=== PATIENT | female | born 1955 | race Two or more races ===

== ENCOUNTER 2021-04-19 11:28 | Inpatient (IN) ==
[2021-04-19 11:41] LABS: BORDETELLA PARAPERTUSSIS (PCR) NOT DETECTED (NOT DETECT); BORDETELLA PERTUSSIS (PCR) NOT DETECTED (NOT DETECT); CHLAMYDIA PNEUMONIAE (PCR) NOT DETECTED (NOT DETECT); CORONAVIRUS 229E (PCR) NOT DETECTED (NOT DETECT); CORONAVIRUS HKU1 (PCR) NOT DETECTED (NOT DETECT); CORONAVIRUS NL63 (PCR) NOT DETECTED (NOT DETECT); CORONAVIRUS OC43 (PCR) NOT DETECTED (NOT DETECT); HUMAN METAPNEUMOVIRUS (PCR) NOT DETECTED (NOT DETECT); HUMAN RHINOVIRUS/ENTEROV (PCR) NOT DETECTED (NOT DETECT); INFLUENZA B (PCR) NOT DETECTED (NOT DETECT); MYCOPLASMA PNEUMONIAE (PCR) NOT DETECTED (NOT DETECT); PARAINFLUENZA VIRUS 1 (PCR) NOT DETECTED (NOT DETECT); PARAINFLUENZA VIRUS 2 (PCR) NOT DETECTED (NOT DETECT); PARAINFLUENZA VIRUS 4 (PCR) NOT DETECTED (NOT DETECT); RESPIRATORY SYNCYTIAL V (PCR) NOT DETECTED (NOT DETECT); SARS_COV_2 (PCR) NOT DETECTED (NOT DETECT)
[2021-04-19 12:32] LABS: ADENOVIRUS (PCR) NOT DETECTED (NOT DETECT); PARAINFLUENZA VIRUS 3 (PCR) DETECTED (NOT DETECT)
[2021-04-19 13:24] VITALS: BMI 33.4
[2021-04-19] MEDS ORDERED: ATROPINE SULFATE PFS IVP PRN (13:53)
[2021-04-19] MEDS ORDERED: NITROSTAT SL PRN (13:53)
[2021-04-19] MEDS ORDERED: TYLENOL PO PRN (13:53)
[2021-04-19] MEDS ORDERED: LISINOPRIL HYDROCHLOROTHIAZIDE PO SCH (14:00)
[2021-04-19] MEDS ORDERED: LEVOTHYROXINE 100 MCG PO SCH (14:00)
[2021-04-19 14:12] LABS: BASOPHILS % (AUTO) 0.5 % (0.0-3.0); EOSINOPHILS # (AUTO) 0.1 K/ul (0.0-0.7); EOSINOPHILS % (AUTO) 1.6 % (0.0-7.0); HEMATOCRIT 41.3 % (37.0-47.0); HEMOGLOBIN 13.9 g/dl (12.0-16.0); IMMATURE GRANULOCYTE % (AUTO) 0.3 % (0.0-5.0); LYMPHOCYTES # (AUTO) 1.4 K/uL (0.60-3.4); LYMPHOCYTES % (AUTO) 35.5 (10.0-50.0); MEAN CORPUSCULAR HEMOGLOBIN 27.6 pg (27.0-31.0); MEAN CORPUSCULAR HGB CONC 33.7 (31.8-35.4); MEAN CORPUSCULAR VOLUME 81.9 fl (81.0-99.0); MONOCYTES # (AUTO) 0.5 K/uL (0.4-2.0); MONOCYTES % (AUTO) 13.2 (0-10); NEUTROPHILS # (AUTO) 1.9 K/ul (2.0-6.9); NEUTROPHILS % (AUTO) 48.9 % (42.2-75.2); PLATELET COUNT 189 10^3/uL (140-440); RDW COEFFICIENT OF VARIATION 14.1 % (11.6-14.8); RED BLOOD COUNT 5.04 10^6/ul (4.20-5.40); WHITE BLOOD COUNT 3.86 K/ul (4.6-10.2)
[2021-04-19 14:25] LABS: ALANINE AMINOTRANSFERASE 23.1 U/L (0-35); ALKALINE PHOSPHATASE 102.3 U/L (53-141); ASPARTATE AMINO TRANSFERASE 28.5 U/L (14-36); BILIRUBIN,TOTAL 0.71 mg/dL (0.2-1.3); BLOOD UREA NITROGEN 13.1 mg/dL (7-17); CALCIUM 10.15 mg/dL (8.4-10.2); CARBON DIOXIDE 27.5 mmol/L (22-30.0); CHLORIDE 103.1 mmol/L (98-107); CREATINE KINASE 158.1 U/L (30-135); CREATININE 0.88 mg/dL (0.60-1.30); POTASSIUM 4.08 mmol/L (3.5-5.1); SODIUM 137.5 mmol/L (134.5-145); TOTAL PROTEIN 7.22 g/dL (6.3-8.2)
[2021-04-19] MEDS: ZITHROMAX PO SCH (14:34)
[2021-04-19] MEDS: ELIQUIS PO SCH ×2 (14:34→20:48)
[2021-04-19] MEDS: PHENERGAN WITH CODEINE 6.25/10 MG/5 ML PO PRN ×2 (14:34→20:48)
[2021-04-19] MEDS: DECADRON IM SCH (14:34)
[2021-04-19] MEDS: ROCEPHIN 1 GM/50 ML D5W 1 GM/50 ML BAG IV SCH (14:34)
[2021-04-19] MEDS: DEXTROSE 5%-1/2NS IV SOLUTION 1,000 ML IV SCH (14:35)
[2021-04-19 14:38] LABS: TROPONIN I < 0.012 ng/ml (0.0000-0.120)
[2021-04-19] MEDS: CARDIZEM CD PO SCH (15:21)
--- NOTE | 2021-04-19 16:17 | DI ---
EXAM: Chest two view, frontal and lateral views. HISTORY: Shortness of breath. COMPARISON: 04/17/2021, 02/15/2021. FINDINGS: The heart size is normal. There is no pulmonary vascular congestion. The lungs are clear . No pleural effusion or pneumothorax is seen. No acute osseous abnormality identified. Since the prior study, there has been no significant interval change. IMPRESSION: No acute cardiopulmonary process.
[2021-04-19 16:55] LABS: BILIRUBIN,URINE Negative (NEGATIVE); CLARITY,URINE Clear (CLEAR); COLOR,URINE Yellow (YELLOW); GLUCOSE, URINE (UA) Negative (NEGATIVE); KETONES,URINE Negative (NEGATIVE); LEUKOCYTE ESTERASE ,URINE Negative (NEGATIVE); NITRITE,URINE Negative (NEGATIVE); PROTEIN,URINE Negative (NEGATIVE); URINE, BLOOD Negative (NEGATIVE)
[2021-04-19] MEDS ORDERED: PRILOSEC PO SCH (17:00)
[2021-04-19] MEDS: PROTONIX PO SCH (17:37)
[2021-04-19] MEDS: TAMIFLU PO SCH (20:48)
[2021-04-19] MEDS: ZOCOR PO SCH (20:48)
[2021-04-19] MEDS: TOPROL XL PO SCH (20:48)
[2021-04-19] MEDS ORDERED: TAMIFLU PO SCH (21:00)
[2021-04-19 22:10] LABS: CREATINE KINASE 160.9 U/L (30-135)
[2021-04-19 22:23] LABS: TROPONIN I < 0.012 ng/ml (0.0000-0.120)
[2021-04-19 22:26] LABS: CREATINE KINASE MB 0.963 ng/ml (0.0-2.38)
[2021-04-19] MEDS ORDERED: XANAX PO PRN (23:10)
[2021-04-20] MEDS ORDERED: ZOFRAN 4 MG/2 ML IVP PRN (00:23)
[2021-04-20] MEDS: DEXTROSE 5%-1/2NS IV SOLUTION 1,000 ML IV SCH (02:17)
[2021-04-20 04:41] LABS: BASOPHILS % (AUTO) 0.4 % (0.0-3.0); HEMATOCRIT 38.4 % (37.0-47.0); HEMOGLOBIN 12.8 g/dl (12.0-16.0); IMMATURE GRANULOCYTE % (AUTO) 0.4 % (0.0-5.0); LYMPHOCYTES # (AUTO) 0.9 K/uL (0.60-3.4); LYMPHOCYTES % (AUTO) 31.3 (10.0-50.0); MEAN CORPUSCULAR HEMOGLOBIN 27.6 pg (27.0-31.0); MEAN CORPUSCULAR HGB CONC 33.3 (31.8-35.4); MEAN CORPUSCULAR VOLUME 82.8 fl (81.0-99.0); MONOCYTES # (AUTO) 0.2 K/uL (0.4-2.0); MONOCYTES % (AUTO) 5.3 (0-10); NEUTROPHILS # (AUTO) 1.8 K/ul (2.0-6.9); NEUTROPHILS % (AUTO) 62.6 % (42.2-75.2); PLATELET COUNT 178 10^3/uL (140-440); RDW COEFFICIENT OF VARIATION 13.9 % (11.6-14.8); RED BLOOD COUNT 4.64 10^6/ul (4.20-5.40); WHITE BLOOD COUNT 2.84 K/ul (4.6-10.2)
[2021-04-20 04:56] LABS: ALANINE AMINOTRANSFERASE 22.6 U/L (0-35); ALBUMIN 4.22 g/dL (3.5-5.0); ALKALINE PHOSPHATASE 94.8 U/L (53-141); ASPARTATE AMINO TRANSFERASE 26.1 U/L (14-36); BILIRUBIN,TOTAL 0.5 mg/dL (0.2-1.3); CALCIUM 9.72 mg/dL (8.4-10.2); CARBON DIOXIDE 25.9 mmol/L (22-30.0); CHLORIDE 106.4 mmol/L (98-107); CREATININE 0.72 mg/dL (0.60-1.30); GLUCOSE 147.6 mg/dL (74-106); POTASSIUM 4.14 mmol/L (3.5-5.1); SODIUM 138.2 mmol/L (134.5-145); TOTAL PROTEIN 6.68 g/dL (6.3-8.2)
[2021-04-20] MEDS: PROTONIX PO SCH ×2 (05:38→17:37)
[2021-04-20] MEDS: SYNTHROID PO SCH (05:39)
[2021-04-20] MEDS: ZESTRIL PO SCH (08:44)
[2021-04-20] MEDS: HYDROCHLOROTHIAZIDE PO SCH (08:44)
[2021-04-20] MEDS: ZITHROMAX PO SCH (08:45)
[2021-04-20] MEDS: TAMIFLU PO SCH (08:45)
[2021-04-20] MEDS: CARDIZEM CD PO SCH (08:45)
[2021-04-20] MEDS: ELIQUIS PO SCH ×2 (08:45→20:39)
[2021-04-20] MEDS: DECADRON IM SCH (09:07)
[2021-04-20] MEDS: ROCEPHIN 1 GM/50 ML D5W 1 GM/50 ML BAG IV SCH (09:07)
--- NOTE | 2021-04-20 09:40 | PCM.PROG ---
Attending Provider: ATTENDING PROVIDER: Dr. AMY AWAD This patient is seen with Buffy José, Nurse Practitioner. DATE OF SERVICE: 04/20/21 SUBJECTIVE: This 65 year old OTHER F was hospitalized 04/19/21. The patient is resting comfortably in bed. She is still coughing. Shortness of breath has improved. Labs are stable. REVIEW OF SYSTEMS: CONSTITUTIONAL: Weakness. No night sweats. No fatigue, malaise, lethargy. No fever or chills. HEENT: Eyes: No visual changes. No eye pain. No eye discharge. ENT: No runny nose. No epistaxis. No sinus pain. No odynophagia. No congestion. RESPIRATORY: Cough with congestion. No hemoptysis. No shortness of breath. CARDIOVASCULAR: No angina symptoms. No CHF symptoms. No atypical chest pain for CAD. No palpitations. No orthopnea.. GASTROINTESTINAL: No abdominal pain. No nausea or vomiting. No diarrhea or constipation. No hematemesis. No hematochezia. GENITOURINARY: No urgency. No frequency. No dysuria. No hematuria. No obstructive symptoms. No discharge. No pain. No significant abnormal bleeding. MUSCULOSKELETAL: No musculoskeletal pain; no joint swelling. NEUROLOGICAL: Awake, alert, oriented to time, place and person. No headache. No neck pain. No syncope. No seizures. No dizziness. PSYCHIATRIC: Not anxious. No depression. No suicidal thoughts. No homicidal thoughts. SKIN: No rash. No lesions. No wounds. ENDOCRINE: No unexplained weight loss. No weight gain. HEMATOLOGIC/LYMPHATIC: No anemia. No purpura. No petechiae. No prolonged or excessive bleeding. No palpable lymph nodes. PHYSICAL EXAMINATION: GENERAL: The patient is awake, alert and oriented, lying/sitting in bed in no distress. VITAL SIGNS: Temperature 97 F, Pulse 60, Respiratory Rate 18, BP 103/71, Pulse Ox 97% HEENT: Head normocephalic, atraumatic. Eyes: Extraocular muscles are intact. Pupils are equal, round and reactive to light and accommodation. Ears: No lesions. Nose appeared normal. Throat: No exudate or erythema. NECK: Supple. No JVD, no carotid bruit. No lymphadenopathy or thyromegaly. LUNGS: Diminished breath sounds. Bilateral rhonchi with inspiratory wheeze. Percussion note normal. Chest symmetrical. HEART: Irregular heart rate. S1, S2, no S3. No murmurs. No cyanosis or clubbing. No ascites. Pulses: Dorsalis pedis and posterior tibial pulses +1 to +2 both sides. ABDOMEN: Soft. Non-tender. Bowel sounds active. No CVA tenderness. No mass felt. EXTREMITIES: No edema. Full range of motion of all extremities, equal. NEUROLOGIC: No focal deficit. Cranial nerves II through XII are grossly intact. No headache. No double vision. SKIN: Not dry. Intact. Turgor-normal. LYMPHATIC: No palpable lymph nodes/no lymphedema. MUSCULOSKELETAL: Normal joints with no swelling. Muscle tone is normal. LAB REVIEW: 04/20/21 04:25 04/20/21 04:25 04/20/21 04:25: Sodium 138.2, Potassium 4.14, Chloride 106.4, Carbon Dioxide 25.9, Anion Gap 10.04, BUN 14.0, Creatinine 0.72, Estimated GFR (MDRD) 82.00, BUN/Creatinine Ratio 19.44, Glucose 147.6 H, Calcium 9.72, Total Bilirubin 0.50, AST 26.1, ALT 22.6, Alkaline Phosphatase 94.8, Total Protein 6.68, Albumin 4.22, Globulin 2.46, Albumin/Globulin Ratio 1.71 04/20/21 04:25: WBC 2.84 L, RBC 4.64, Hgb 12.8, Hct 38.4, MCV 82.8, MCH 27.6, MCHC 33.3, RDW Coeff of Todd 13.9, Plt Count 178, Immature Gran % (Auto) 0.4, Neut % (Auto) 62.6, Lymph % (Auto) 31.3, [place] % (Auto) 5.3, Eos % (Auto) 0.0, Baso % (Auto) 0.4, Neut # (Auto) 1.8 L, Lymph # (Auto) 0.9, [place] # (Auto) 0.2 L, Eos # (Auto) 0.0, Baso # (Auto) 0.0, Immature Gran # (Auto) 0.0 04/19/21 21:52: Total Creatine Kinase 160.9 H, CK-MB (CK-2) 0.963, CK-MB (CK-2) % 0.5900, Troponin I < 0.012 04/19/21 16:34: Urine Color Yellow, Urine Clarity Clear, Urine pH 6.0, Ur Specific Bishop 1.010, Urine Protein Negative, Urine Glucose (UA) Negative, Urine Ketones Negative, Urine Blood Negative, Urine Nitrite Negative, Urine Bilirubin Negative, Urine Urobilinogen 1.0 H, Ur Leukocyte Esterase Negative 04/19/21 14:00: Free T4 1.20 04/19/21 14:00: Sodium 137.5, Potassium 4.08, Chloride 103.1, Carbon Dioxide 27.5, Anion Gap 10.98, BUN 13.1, Creatinine 0.88, Estimated GFR (MDRD) 65.00, BUN/Creatinine Ratio 14.88, Glucose 110.0 H, Calcium 10.15, Total Bilirubin 0.71, AST 28.5, ALT 23.1, Alkaline Phosphatase 102.3, Total Creatine Kinase 158.1 H, CK-MB (CK-2) 1.140, CK-MB (CK-2) % 0.7200, Troponin I < 0.012, Total Protein 7.22, Albumin 4.40, Globulin 2.82, Albumin/Globulin Ratio 1.56, TSH 4.320 04/19/21 14:00: WBC 3.86 L, RBC 5.04, Hgb 13.9, Hct 41.3, MCV 81.9, MCH 27.6, MCHC 33.7, RDW Coeff of Todd 14.1, Plt Count 189, Immature Gran % (Auto) 0.3, Neut % (Auto) 48.9, Lymph % (Auto) 35.5, [place] % (Auto) 13.2 H, Eos % (Auto) 1.6, Baso % (Auto) 0.5, Neut # (Auto) 1.9 L, Lymph # (Auto) 1.4, [place] # (Auto) 0.5, Eos # (Auto) 0.1, Baso # (Auto) 0.0, Immature Gran # (Auto) 0.0 04/19/21 11:30: Adenovirus (PCR) Not detected, B. pertussis DNA (PCR) Not detected, B.parapertussis DNA PCR Not detected, C. pneumoniae DNA (PCR) Not detected, Coronavirus OC43 (PCR) Not detected, Coronavirus HKU1 (PCR) Not detected, Coronavirus 229E (PCR) Not detected, Coronavirus NL63 (PCR) Not detected, Human Metapneumovir PCR Not detected, Influenza Type A (PCR) Not detected, Influenza B (RT-PCR) Not detected, M. pneumoniae (PCR) Not detected, Parainfluenza 1 (PCR) Not detected, Parainfluenza 2 (PCR) Not detected, Parainfluenza 3 (PCR) Detected H, Parainfluenza 4 (PCR) Not detected, RSV (PCR) Not detected, Entero/Rhino (PCR) Not detected, SARS-CoV-2 (PCR) Not detected ASSESSMENT: Please see below. 1. Acute pneumonitis. 2. Positive parainfluenza. 3. Atrial fibrillation. 4. Noncompliance with medications, followup and recommendations. PLAN: 1. D/C IV fluids. Plan and coordination of the patient's care discussed in the presence of Custodian and nurse. CONDITION: Stable SCRIBED BY: Ozzie JENKINS scribed while in presence of service performed by Dr. Awad/Buffy José APRN on 04/20/21 ([id number])
--- NOTE | 2021-04-20 11:24 | HP ---
DATE OF SERVICE: 04/19/21 REASON FOR HOSPITALIZATION/HISTORY OF PRESENT ILLNESS: 65-year-old female with complaint of cough/dry times five days with fever and weakness. Also palpitations times 7 to 8 days. She was seen by Dr. Trimble, Market Intelligence Consultant, who discontinued Metoprolol and reduced the dose of Cardizem as the patient was feeling weak and tired. The patient says it did not change how she felt. She went to the ER at [facility] where M.D. did not do much as she is not vaccinated. Chest x-ray was okay. She wnet there with cold and cough with fever. No symptoms of CHF/CAD. PAST MEDICAL HISTORY: Atrial fibrillation Chronic GERD Dyslipidemia Fibromyalgia Hiatal hernia Hypertension Hypothyroid PAST SURGICAL HISTORY: History of breast surgery History of tubal ligation History of hysterectomy REVIEW OF SYSTEMS: CONSTITUTIONAL: Fever and fatigue. HEENT: Sinus drainage and sore throat. RESPIRATORY: Cough. No hemoptysis. CARDIOVASCULAR: Positive for shortness of breath and palpitations. No atypical chest pain for coronary artery disease. No angina or CHF symptoms. GASTROINTESTINAL: Appetite is not good. No melena or abdominal pain. No GERD. GENITOURINARY: No hematuria, no polyuria. ROUTE DELIVERY MANAGER: Dizziness. No blackout, no headache, no double vision. MUSCULOSKELETAL: Osteoarthritis pain, no joint swelling. ENDOCRINE: No weight loss, no weight gain. SKIN: Dry skin, no rash. PSYCHIATRIC: Anxious, no depression, no suicidal thoughts, no homicidal thoughts. SOCIAL HISTORY: Never smoker. No alcohol use. No illicit drug use. FAMILY HISTORY: Father and mother heart disease. MEDICATIONS: Omeprazole 20 mg p.o. b.i.d. Apixaban (Eliquis) 5 mg p.o. b.i.d. Levothyroxine 100 mcg p.o. q.d a.c. Diltiazem (Cardizem SR) 120 mg p.o. b.i.d. Metoprolol 25 mg p.o. 1900 Lisinopril-Hydrochlorothiazide 10-12.5 mg one tab p.o. daily Simvastatin 20 mg p.o. bedtime ALLERGIES: NKDA PHYSICAL EXAMINATION: V/S: Pulse 54, BP 126/62, temperature 98, 02 sat 99%. BMI 34.4, height 5'6", weight 213.0 GENERAL APPEARANCE: Oriented times three. HEENT: Normal. NECK: No JVP, no bruits. RESPIRATORY: Lungs decreased breath sounds. CARDIOVASCULAR: S1, S2, no S3, no murmur. No cyanosis, clubbing. No ascites. GI/ABDOMEN: No tenderness. Bowel sounds are active. EXTREMITIES: No edema, pulses +1, equal. ROUTE DELIVERY MANAGER: Deep tendon reflexes, sensory, motor and gait all normal. RECTAL/PELVIC: Colonoscopy - [facility] 3 years ago. Pelvic: Cervix - history of cancer 1994. Mammogram 2019 [facility]. ASSESSMENT: 1. Acute bronchitis/pneumonitis 2. Atrial fibrillation/flutter 3. Hypertension 4. Dyslipidemia 5. Hypothyroidism 6. Family history of tachycardia 7. History of diabetes mellitus type 2 ? 8. History of cancer of breast 9. BMI 34 10. Hysterectomy 11. GERD 12. Hiatal hernia 13. Fibromyalgia PLAN: 1. Rocephin 1 gm IV now and q.24hr 2. Routine telemetry orders. 3. Sputum for culture and sensitivity gram stain. 4. Phenergan with Codeine two teaspoons p.o. q.i.d. 5. Cardizem SR 12 hr 120 mg p.o. now and b.i.d. 6. Metoprolol ER 25 mg p.o. at 7 p.m. 7. 1000 cc D5 1/2 NS 12 hourly 7. Levothyroxine 100 mg p.o. daily a.m. 8. Simvastatin 20 mg p.o. daily 9. Eliquis 5 mg p.o. b.i.d. 10. Lisinopril 10-12.5 mg one tab p.o. daily 11. 4 mg Decadron IM today and q a.m. 12. Zithromax 500 mg p.o. daily times 3 days t.i.d. 13. T4 and TSH TIME SPENT: More than 70 minutes. MTDD
--- NOTE | 2021-04-20 13:25 | PN ---
DATE OF SERVICE: 04/19/21 SUBJECTIVE: This 65-year-old female has parainfluenza positive. She has dry cough with congestion, pneumonitis. She will be started on Tamiflu along with Cardizem and Metoprolol that she was on before for her atrial fib/flutter. Cardiovascular status stable. In the office, the patient was in atrial fibrillation, now is in sinus rhythm. Condition is stable. She was seen and examined in the office. History and Physical was done with the management plan. TIME SPENT: More than 30 minutes. Plan and coordination of the patient's care discussed in the presence of nurse. ITZEL
[2021-04-20] MEDS: ZOCOR PO SCH (20:38)
[2021-04-20] MEDS: TOPROL XL PO SCH (20:38)
[2021-04-20 21:55] VITALS: TEMP 97.5
[2021-04-21 04:36] LABS: BASOPHILS % (AUTO) 0.1 % (0.0-3.0); HEMOGLOBIN 12.4 g/dl (12.0-16.0); IMMATURE GRANULOCYTE % (AUTO) 0.5 % (0.0-5.0); LYMPHOCYTES # (AUTO) 1.4 K/uL (0.60-3.4); LYMPHOCYTES % (AUTO) 17.2 (10.0-50.0); MEAN CORPUSCULAR HEMOGLOBIN 27.6 pg (27.0-31.0); MEAN CORPUSCULAR HGB CONC 33.5 (31.8-35.4); MEAN CORPUSCULAR VOLUME 82.2 fl (81.0-99.0); MONOCYTES # (AUTO) 0.4 K/uL (0.4-2.0); MONOCYTES % (AUTO) 5.2 (0-10); NEUTROPHILS # (AUTO) 6.3 K/ul (2.0-6.9); PLATELET COUNT 202 10^3/uL (140-440); RDW COEFFICIENT OF VARIATION 13.9 % (11.6-14.8); WHITE BLOOD COUNT 8.15 K/ul (4.6-10.2)
[2021-04-21 04:50] LABS: ALANINE AMINOTRANSFERASE 25.4 U/L (0-35); ALBUMIN 4.14 g/dL (3.5-5.0); ALKALINE PHOSPHATASE 85.5 U/L (53-141); ASPARTATE AMINO TRANSFERASE 24.6 U/L (14-36); BILIRUBIN,TOTAL 0.47 mg/dL (0.2-1.3); BLOOD UREA NITROGEN 23.1 mg/dL (7-17); CALCIUM 9.88 mg/dL (8.4-10.2); CARBON DIOXIDE 26.2 mmol/L (22-30.0); CHLORIDE 104.3 mmol/L (98-107); CREATININE 0.81 mg/dL (0.60-1.30); GLUCOSE 120.7 mg/dL (74-106); POTASSIUM 4.21 mmol/L (3.5-5.1); SODIUM 137.4 mmol/L (134.5-145); TOTAL PROTEIN 6.49 g/dL (6.3-8.2)
[2021-04-21 05:22] VITALS: BP 111/76
[2021-04-21] MEDS: PROTONIX PO SCH (05:51)
[2021-04-21] MEDS: SYNTHROID PO SCH (05:51)
[2021-04-21] MEDS: CARDIZEM CD PO SCH (09:22)
[2021-04-21] MEDS: ZESTRIL PO SCH (09:22)
[2021-04-21] MEDS: ELIQUIS PO SCH (09:22)
[2021-04-21] MEDS: ZITHROMAX PO SCH (09:22)
[2021-04-21] MEDS: DECADRON IM SCH (09:23)
[2021-04-21] MEDS: ROCEPHIN 1 GM/50 ML D5W 1 GM/50 ML BAG IV SCH (09:23)
[2021-04-21] MEDS: HYDROCHLOROTHIAZIDE PO SCH (09:23)
--- NOTE | 2021-04-21 13:36 | CM.DICTOOL ---
ADMISSION: 04/19/21 12:54 DISCHARGE: 04/21/21 DATE OF SERVICE: 04/21/21 FINAL DIAGNOSIS ACUTE PNEUMONITIS / BRONCHITIS, IMPROVING PARAINFLUENZA 3 ATRIAL FIBRILLATION, PAROXYSMAL HYPERTENSION DYSLIPIDEMIA HYPOTHYROIDISM GERD HIATAL HERNIA FIBROMYALGIA CERVICAL CA 1994 NONCOMPLIANCE WITH MEDICATIONS, FOLLOW-UP AND RECOMMENDATIONS HYSTERECTOMY 1994 TUBAL LIGATION 1996 L BREAST MASS REMOVED WITH RADIATION 1999 LAST VITALS Temp Pulse Resp BP Pulse Ox 97.5 F L 49 L 16 111/76 95 04/21/21 05:20 04/21/21 05:20 04/21/21 05:20 04/21/21 05:20 04/21/21 05:20 TAKE THESE MEDICATIONS AT HOME Apixaban (ELIQUIS 5 Mg Tab) 5 mg PO BID [facility] Last Admin: 04/21/21 09:22 Dose: 5 mg Diltiazem HCl ER (CARDIZEM CD 120MG) 120 mg PO BID [facility] Last Admin: 04/21/21 09:22 Dose: 240 mg NEXT DOSE: 04/22/21 0800 KEFLEX 500MG 1 TAB PO BID X7 DAYS NEXT DOSE: 04/22/21 0800 Levothyroxine Sodium (Levothyroxine Sodium 100 Mcg Tablet) 100 mcg PO QDAC [facility] Last Admin: 04/21/21 05:51 Dose: 100 mcg Lisinopril/HCTZ (Lisinopril/HYDROCHLOROTHIAZIDE 10/12.5 Mg Tablet) 10/12.5 mg PO DAILY [facility] Last Admin: 04/21/21 09:22 Dose: 10/12.5 MG Lorazepam 0.5mg 1/2 tab - 1 tab PO QHS PRN Insomnia #15 / NO REFILLS Metoprolol Succinate (Metoprolol Succinate 25 Mg Tab.Er.24h) 25 mg PO 1900 [facility] Last Admin: 04/20/21 20:38 Dose: 25 mg Omeprazole 20 mg PO BIDAC [facility] NEXT DOSE: 04/21/21 EVENING Promethazine HCl/Codeine (Promethazine/Codeine Syrup 6.25/10 Mg/5 Ml Disp.Syringe) 10 ml PO Q6H PRN X7 DAYS 9 OZ/NO REFILLS PRN Reason: Cough Last Admin: 04/19/21 20:48 Dose: 10 ml Simvastatin (Simvastatin 10 Mg Tablet) 20 mg PO BEDTIME [facility] Last Admin: 04/20/21 20:38 Dose: 20 mg Duonebs 1 inhalation QID PRN WHEEZING COUGH 30DSP/2RF ALLERGIES No Known Allergies Allergy (Unverified 04/19/21 23:37) DISCONTINUED MEDICATIONS DISCONTINUE ALL OTHER PREVIOUSLY FILLED CARDIZEM DOSES. NEW PRESCRIPTIONS: Keflex 500mg PO 1 tab PO BID x7 days #14/2RF Cardizem CD 120mg 1 tab PO BID #60/2RF Ativan 0.5mg 1/2-1 tab PO QHS PRN Insomnia #15/NR Phenergan with Codiene Syrup 2 TSP PO QID PRN x7 DAYS 9oz/NR Home Nebulizer with Tubing use QID PRN - [employer] DuoNebs 1 inh QID PRN wheezing/cough 30DSP/2RF SMOKING: NEVER SMOKER DISEASE SPECIFIC EDUCATION: PNEUMONITIS ATRIAL FIBRILLATION MEDICATION COMPLIANCE NEBULIZER USE LAB REVIEW: 04/21/21 04:10 04/21/21 04:10 04/21/21 04:10: Sodium 137.4, Potassium 4.21, Chloride 104.3, Carbon Dioxide 26.2, Anion Gap 11.11, BUN 23.1 H, Creatinine 0.81, Estimated GFR (MDRD) 71.00, BUN/Creatinine Ratio 28.51, Glucose 120.7 H, Calcium 9.88, Total Bilirubin 0.47, AST 24.6, ALT 25.4, Alkaline Phosphatase 85.5, Total Protein 6.49, Albumin 4.14, Globulin 2.35, Albumin/Globulin Ratio 1.76 04/21/21 04:10: WBC 8.15 D, RBC 4.50, Hgb 12.4, Hct 37.0, MCV 82.2, MCH 27.6, MCHC 33.5, RDW Coeff of Todd 13.9, Plt Count 202, Immature Gran % (Auto) 0.5, Neut % (Auto) 77.0 H, Lymph % (Auto) 17.2, [place] % (Auto) 5.2, Eos % (Auto) 0.0, Baso % (Auto) 0.1, Neut # (Auto) 6.3, Lymph # (Auto) 1.4, [place] # (Auto) 0.4, Eos # (Auto) 0.0, Baso # (Auto) 0.0, Immature Gran # (Auto) 0.0 PLAN: DISCHARGE HOME TODAY, Monday04/21/2021 DIET: REGULAR DIET ACTIVITY: UP AD JANIE TOLERATED DME: HOME NEBULIZER WITH TUBING, USE NEEDED WITH DUONEBS FOR SOA, WHEEZING,COUGH. FOLLOW-UP: DR. AWAD / ZINA SLOAN APRN / MELISSA KING APRN CALL TOMORROW TO SCHEDULE AN APPOINTMENT IN 5-7 DAYS. CODE STATUS: FULL CODE Mrs. Banks is sitting up in bed, A&Ox3. Sinus Constantine on potline monitor. Lung sounds coarse with expiratory wheezes throughout. Pt continues to have dry non- productive hacking cough. No SOA noted. Abdomen soft and nontender, bowel sounds active x4. Denies nausea. Pt is continent of bowel and bladder. Last BM 04/18/21. Skin W/D/I, appetite good, skin intact. Gait is steady. Pt denies the presence of pain. Discussed plan to discharge home today - pt agreeable to plan, stating, "I'm ready to go home." Pt reports feeling much better. Reports she has been sleeping well with PRN medication at bedtime here. Pt requesting something to take for sleep and for her cough at home. Counselled pt on Ativan use at HS and will prescribe cough syrup. I feel the patient would benefit from continued nebulizer use at home with duonebs for shortness of breath, wheezing, and cough. Discussed plan to complete echocardiogram prior to discharge. Discussed medication management and importance of compliance with the treatment plan. Pt agreeable, verbalized understanding, with no further questions or concerns. Dr. AMY AWAD
--- NOTE | 2021-04-22 13:46 | DS ---
DATE OF SERVICE: 04/21/2021 FINAL DIAGNOSIS: ACUTE PNEUMONITIS / BRONCHITIS, IMPROVING PARAINFLUENZA 3 ATRIAL FIBRILLATION, PAROXYSMAL HYPERTENSION DYSLIPIDEMIA HYPOTHYROIDISM GERD HIATAL HERNIA FIBROMYALGIA CERVICAL CA 1994 NONCOMPLIANCE WITH MEDICATIONS, FOLLOW-UP AND RECOMMENDATIONS HYSTERECTOMY 1994 TUBAL LIGATION 1996 L BREAST MASS REMOVED WITH RADIATION 1999 LAST VITALS: Temp Pulse Resp BP Pulse Ox 97.5 F L 49 L 16 111/76 95 04/21/21 05:20 04/21/21 05:20 04/21/21 05:20 04/21/21 05:20 04/21/21 05:20 DISCHARGE INSTRUCTIONS: DISCHARGE HOME TODAY, Monday04/21/2021. DME: HOME NEBULIZER WITH TUBING, USE NEEDED WITH DUONEBS FOR SOA, WHEEZING,COUGH. FOLLOW-UP: DR. AWAD / ZINA SLOAN APRN / MELISSA KING APRN, , CALL TOMORROW TO SCHEDULE AN APPOINTMENT IN 5-7 DAYS. CODE STATUS: FULL CODE. TAKE THESE MEDICATIONS AT HOME: Apixaban (ELIQUIS 5 Mg Tab) 5 mg PO BID [facility] Last Admin: 04/21/21 09:22 Dose: 5 mg Diltiazem HCl ER (CARDIZEM CD 120MG) 120 mg PO BID [facility] Last Admin: 04/21/21 09:22 Dose: 240 mg NEXT DOSE: 04/22/21 0800 KEFLEX 500MG 1 TAB PO BID X7 DAYS NEXT DOSE: 04/22/21 0800 Levothyroxine Sodium (Levothyroxine Sodium 100 Mcg Tablet) 100 mcg PO QDAC [facility] Last Admin: 04/21/21 05:51 Dose: 100 mcg Lisinopril/HCTZ (Lisinopril/HYDROCHLOROTHIAZIDE 10/12.5 Mg Tablet) 10/12.5 mg PO DAILY [facility] Last Admin: 04/21/21 09:22 Dose: 10/12.5 MG Lorazepam 0.5mg 1/2 tab - 1 tab PO QHS PRN Insomnia #15 / NO REFILLS Metoprolol Succinate (Metoprolol Succinate 25 Mg Tab.Er.24h) 25 mg PO 1900 [facility] Last Admin: 04/20/21 20:38 Dose: 25 mg Omeprazole 20 mg PO BIDAC [facility] NEXT DOSE: 04/21/21 EVENING Promethazine HCl/Codeine (Promethazine/Codeine Syrup 6.25/10 Mg/5 Ml Disp.Syringe) 10 ml PO Q6H PRN X7 DAYS 9 OZ/NO REFILLS PRN Reason: Cough Last Admin: 04/19/21 20:48 Dose: 10 ml Simvastatin (Simvastatin 10 Mg Tablet) 20 mg PO BEDTIME [facility] Last Admin: 04/20/21 20:38 Dose: 20 mg Duonebs 1 inhalation QID PRN WHEEZING COUGH 30DSP/2RF ALLERGIES: No Known Allergies Allergy (Unverified 04/19/21 23:37) DISCONTINUED MEDICATIONS: DISCONTINUE ALL OTHER PREVIOUSLY FILLED CARDIZEM DOSES. NEW PRESCRIPTIONS: Keflex 500mg PO 1 tab PO BID x7 days #14/2RF Cardizem CD 120mg 1 tab PO BID #60/2RF Ativan 0.5mg 1/2-1 tab PO QHS PRN Insomnia #15/NR Phenergan with Codeine Syrup 2 TSP PO QID PRN x7 DAYS 9oz/NR Home Nebulizer with Tubing use QID PRN - [employer] DuoNebs 1 inh QID PRN wheezing/cough 30DSP/2RF SMOKING: NEVER SMOKER DISEASE SPECIFIC EDUCATION: PNEUMONITIS ATRIAL FIBRILLATION MEDICATION COMPLIANCE NEBULIZER USE LAB REVIEW: 04/21/21 04:10 04/21/21 04:10 04/21/21 04:10: Sodium 137.4, Potassium 4.21, Chloride 104.3, Carbon Dioxide 26.2, Anion Gap 11.11, BUN 23.1 H, Creatinine 0.81, Estimated GFR (MDRD) 71.00, BUN/Creatinine Ratio 28.51, Glucose 120.7 H, Calcium 9.88, Total Bilirubin 0.47, AST 24.6, ALT 25.4, Alkaline Phosphatase 85.5, Total Protein 6.49, Albumin 4.14, Globulin 2.35, Albumin/Globulin Ratio 1.76 04/21/21 04:10: WBC 8.15 D, RBC 4.50, Hgb 12.4, Hct 37.0, MCV 82.2, MCH 27.6, MCHC 33.5, RDW Coeff of Todd 13.9, Plt Count 202, Immature Gran % (Auto) 0.5, Neut % (Auto) 77.0 H, Lymph % (Auto) 17.2, [place] % (Auto) 5.2, Eos % (Auto) 0.0, Baso % (Auto) 0.1, Neut # (Auto) 6.3, Lymph # (Auto) 1.4, [place] # (Auto) 0.4, Eos # (Auto) 0.0, Baso # (Auto) 0.0, Immature Gran # (Auto) 0.0 DIET: REGULAR DIET ACTIVITY: UP AD [facility]IE T[facility]ERATED HOSPITAL COURSE: 65 year old white female was hospitalized with acute bronchitis/pneumonitis. The patient's duration of symptoms three to four days and looked dehydrated. She had bilateral wheezing. Parainfluenza test was positive. COVID was negative. The patient was given IV fluids, steroids, NEBS, antibiotics and Rocephin. Later on was put on Keflex. At the time of discharge was also given antitussives, Phenergan with codeine. The patient's condition has improved. Ativan helped her to rest at night. The patient during the stay in the hospital for 3 days had telemetry on the monitor did not show any arrhythmias and no atrial fibrillation was noted. The patient has history of atrial fibrillation and she had frequent palpitations at home. The patient's Cardizem dose was reduced and Metoprolol was discontinued by Behavioral Intervention Specialist because of the patient's complaints of having feeling of fatigue. The dose was reduced to see how she does. In any case the patient was restarted on her Cardizem and Metoprolol was still head. At discharge was instructed to take 120mg Cardizem CD BID that it would work better with less palpitation during nighttime. She was also given Ativan at night and has some family issues. She has been under a lot of stress. In any case the patient's acute pneumonitis and bronchitis with viral syndrome seems to be under control. She was discharged on Phenergan with codeine. Keflex was given for 5 days. She was also put on NEBS treatment. Ativan was given to be taken at night. She was put on Cardizem CD 120mg BID, Metoprolol 25mg to is to be taken at 7pm only if the patient starts having palpitation. During her stay in the hospital her lowest rate was noted to be around 40 per minute. There are no two second pauses. She did not have any atrial fibrillation. Thyroid functions are normal. The patient is strongly advised to undergo nuclear stress test with Dr. Trimble, she is going reschedule that. Condition at the time of discharge is stable. The patient's BMI is 33. She is advised to lose weight. Diet for the weight loss discussed. TIME SPENT: More than 60 minutes. ITZEL
--- NOTE | 2021-04-22 13:47 | PN ---
04/19/2021: Level 5 04/20/2021: Intermediate 04/21/2021: D as in discharge MTDD
--- NOTE | 2021-04-23 13:45 | ECHO2D ---
Date of Exam: 04/21/2021 Ordering Physician: DR. AMY AWAD Room #: 103 Reason for Echo: PAROXYSMAL ATRIAL FIBRILLATION M-Mode Normal Adult Results LV Dimensions Normal Adult Results AoV Opening excursions >1.6 >1.6 LVEDD-base- 3.5-5.8 4.7 Ao root dimensions 2.0-3.7 4.1 LVESD-base- 3.1-4.6 L. Atrium dimensions 1.9-3.8 4.4 Post. Wall thickness 0.8-1.1 1.2 IV septum (thickness) 0.7-1.2 1.2 Post. Wall excursion 0.72-1.3 NORMAL Septal motion NORMAL Systolic motion R. Ventricular cavity 1.5-2.0 NORMAL LVEF 60% 65% Paradoxical septal wall motion NORMAL 2-D : 2-D M Mode Echocardiogram was performed using apical four chamber and left parasternal long and short axis views. Mitral, tricuspid and aortic valves appear to be normal. Contractility of the left ventricle seems to be normal, so is the cavity size. ENLARGED LEFT ATRIAL CAVITY. DILATED AORTIC ROOT. There is no pericardial effusion. There is no thrombus noted in the left ventricle or left atrial cavity. M-MODE: MV: NORMAL AV: NORMAL TV: NORMAL PV: CHAMBER SIZE: ENLARGED LEFT ATRIAL CAVITY, DILATED AORTIC ROOT WALL MOTION: NORMAL PERICARDIUM: NORMAL INTERPRETATION: 1. BORDERLINE LEFT VENTRICULAR HYPERTROPHY WITH ENLARGED LEFT ATRIAL CAVITY 2. DILATED AORTIC ROOT (MILD) 3. NORMAL VALVES 4. NORMAL LEFT VENTRICLE CONTRACTILITY AND LEFT VENTRICLE SIZE MTDD
--- NOTE | 2021-04-26 09:46 | PN ---
DATE OF SERVICE: 04/20/21 SUBJECTIVE: The patient was seen and examined with the nurse practitioner. The patient's condition has improved. Her viral syndrome seems to be improving. Coughing is much less. Antitussives have been helping the patient to suppress the cough. She is afebrile. The patient is in sinus rhythm with occasional PAC noted. Blood pressure is under control. TIME SPENT: More than 30 minutes. Plan and coordination of the patient's care discussed in the presence of nurse. ITZEL
--- NOTE | 2021-04-26 13:22 | PN ---
DATE OF SERVICE: 04/21/21 SUBJECTIVE: 65-year-old white female hospitalized with viral syndrome with pneumonitis. The patient also had palpitations. Recently the patient's medications had been changed involving atrial fib which is paroxysmal. REVIEW OF SYSTEMS: CONSTITUTIONAL: The patient feels 100% better. No night sweats. No fatigue, malaise, lethargy. No fever or chills. HEENT: Eyes: No visual changes. No eye pain. No eye discharge. ENT: No runny nose. No epistaxis. No sinus pain. No sore throat. No odynophagia. No congestion. RESPIRATORY: Mild cough. No hemoptysis. No shortness of breath. CARDIOVASCULAR: No angina symptoms. No CHF symptoms. No atypical chest pain for CAD. No palpitations. No PND. No orthopnea. GASTROINTESTINAL: Appetite has improved. No abdominal pain. No nausea or vomiting. No diarrhea or constipation. No hematemesis. No hematochezia. GENITOURINARY: No urgency. No frequency. No dysuria. No hematuria. No obstructive symptoms. No discharge. No pain. No significant abnormal bleeding. MUSCULOSKELETAL: No musculoskeletal pain; no joint swelling. NEUROLOGICAL: No headache. No neck pain. No syncope. No seizures. No dizziness. PSYCHIATRIC: Not anxious. No depression. No suicidal thoughts. No homicidal thoughts. SKIN: No rash. No lesions. No wounds. ENDOCRINE: No unexplained weight loss. No weight gain. HEMATOLOGIC/LYMPHATIC: No anemia. No purpura. No petechiae. No prolonged or excessive bleeding. No palpable lymph nodes. PHYSICAL EXAMINATION: HEENT: Head normocephalic, atraumatic. Eyes: Extraocular muscles are intact. Pupils are equal, round and reactive to light and accommodation. Ears: No lesions. Nose appeared normal. Throat: No exudate or erythema. NECK: Supple. No JVD, no carotid bruit. No lymphadenopathy or thyromegaly. LUNGS: Decreased breath sounds but clear to auscultation. Percussion note normal. Chest symmetrical. HEART: S1, S2, no S3. No murmurs. No cyanosis or clubbing. No ascites. Pulses: Dorsalis pedis and posterior tibial pulses +1 to +2 bilaterally. ABDOMEN: Soft. Nontender. Bowel sounds active. No CVA tenderness. No mass felt. EXTREMITIES: No edema. Full range of motion of all extremities, equal. NEUROLOGIC: No focal deficit. Cranial nerves II through XII are grossly intact. No headache. No double vision. SKIN: Not dry. Intact. Turgor - normal. LYMPHATIC: No palpable lymph nodes/no lymphedema. MUSCULOSKELETAL: Normal joints with no swelling. Muscle tone is normal. LABS: Temperature 97.5, pulse 50, respiratory rate 16, blood pressure 110/76. Pulse ox 95%. Hemoglobin 12.4, hematocrit 37, WBC 8,000, Normal differential. Creatinine 0.8, BUN 23, potassium 4.2. T4, TSH normal. ASSESSMENT: 1. Acute bronchitis/pneumonitis with viral syndrome with parainfluenza. Condition has improved. 2. Dehydration has resolved. 3. No palpitations noted, cardiovascular status stable. Telemetry monitoring for three days showed no atrial fibrillation. PLAN: 1. Discharge the patient home on Cardizem CD 12 hour/twice a day. 2. Hold Metoprolol for now. The patient was explained about that unless she has palpitations at night she is not supposed to take Metoprolol. 3. Continue Eliquis, Lisinopril, Hydrochlorothiazide. 4. Antibiotics will be given including cough medicine. 5. Ativan to be given for sleep as that helped her rest, 0.25 mg was good enough for her. CONDITION: Otherwise stable. She will be discharged home. TIME SPENT: More than 30 minutes. Plan and coordination of the patient's care discussed in the presence of nurse. ITZEL
== END 2021-04-21 14:20 | disposition home or self-care (01) | DRG 195 ==
LOC: LAB 11:28 → MEDSURG A 12:54
PROVIDERS: ADMIT Internal Medicine; ATTEND Internal Medicine